=== PATIENT | female | born 1985 | race African-American/Black ===

== ENCOUNTER 2024-07-20 15:44 | Emergency (ER) | payer MEDICAID ==
[~2024-07-20] VITALS: Ht 170.2 cm; Wt 86.0 kg
[2024-07-20 15:55] VITALS: O2SAT 99
[2024-07-20] MEDS ORDERED: IBUP-2029 MT (17:24)
[2024-07-20 17:37] VITALS: BP 131/79; PULSE 81; RESP 16; TEMP 36.78072; O2SAT 99
== END 2024-07-20 17:38 | disposition home or self-care (01) ==
LOC: ER 15:44
DX: S93.505A Unspecified sprain of left lesser toe(s), initial encounter (principal); X58.XXXA Exposure to other specified factors, initial encounter; Y93.89 Activity, other specified; Y92.89 Other specified places as the place of occurrence of the external cause; Y99.8 Other external cause status
CPT/HCPCS: 73630; 99283